=== PATIENT | female | born 1980 | race Caucasian/White ===

== ENCOUNTER → 2023-09-01 11:27 | Outpatient (CLI) | payer OTHER, SELFPAY ==
--- NOTE | 2023-09-01 11:30 | DI.MG.S_ITS ---
BILATERAL DIGITAL SCREENING MAMMOGRAM 3D/2D WITH CAD: 09/01/2023 CLINICAL: Baseline exam. Routine screening. Family history of breast cancer. No prior exams were available for comparison. Both breasts are heterogeneously dense, which may obscure small masses (category c / 51-75% glandular tissue). Current study was also evaluated with a Computer Aided Detection (CAD) system. No significant masses, calcifications, or other findings are seen in either breast. IMPRESSION: NEGATIVE There is no mammographic evidence of malignancy. A 1 year screening mammogram is recommended. Based on Tyrer-Cuzick model (a risk assessment model), the patient's lifetime risk is 20.0% and her 10 year risk is 3.1%. If a patient has an elevated risk, a more comprehensive evaluation should be considered and/or a referral to a genetic counselor. The [place] [employer], [employer], and NCCN Guidelines advise the consideration of Breast MRI as an adjunct to screening mammography in patients whose Lifetime risk to develop breast cancer is 20% or higher. This exam was interpreted at Station ID: [id number]. NOTE: For mammograms, a report in lay terms will be sent to the patient. Approximately 15% of breast malignancies will not be visualized mammographically. In the management of a palpable breast mass, a negative mammogram must not discourage biopsy of a clinically suspicious lesion. Electronically Signed By: Sofya santana/dima:09/01/2023 12:22:20 letter sent: Normal Exam ACR BI-RADS Category 1: Negative [id number]
== END ==
PROVIDERS: PCP Family Medicine; Referring Provider Family Medicine; Visit Provider Family Medicine
DX: Z12.31 Encounter for screening mammogram for malignant neoplasm of breast (principal); Z80.3 Family history of malignant neoplasm of breast; R92.30 Dense breasts, unspecified
CPT/HCPCS: 77063; 77067

== ENCOUNTER 2024-07-08 10:11 | Observation (INO) | payer OTHER, SELFPAY ==
[2024-07-08] VITALS (14 sets, daily range): BP systolic 138–189; BP diastolic 79–99; PULSE 68–120; RESP 13–69; TEMP 36.8–37; O2SAT 97–100; BMI 35.4; BMI 37.5
--- NOTE | 2024-07-08 10:35 | EKG_ITS ---
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
--- NOTE | 2024-07-08 10:41 | DI.RAD.S_ITS ---
PROCEDURE: XR CHEST 1V INDICATIONS: chest pain TECHNIQUE: One view of the chest was acquired. COMPARISON: None. FINDINGS: Surgical changes and devices: None. Lungs and pleura: Lungs are clear. No pleural effusions or pneumothorax. Mediastinum: Mediastinal contours appear normal. Heart size is normal. Bones and chest wall: No suspicious bony lesions. Overlying soft tissues appear unremarkable. IMPRESSION: No acute cardiopulmonary abnormality is seen. Dictated by: Donna Whitten M.D. on 07/08/2024 at 10:10 Approved by: Donna Whitten M.D. on 07/08/2024 at 10:11
[2024-07-08 11:01] LABS: Add Manual Diff / Slide Review NO; Basophils Absolute Auto 100 /uL (0-100); Basophils Percent Auto 1.4 % (0-2); Eosinophils Absolute Auto 400 /uL (0-450); Eosinophils Percent Auto 4.5 % (2-4); Hematocrit 43.4 % (36-46); Lymphocytes Absolute Auto 1600 /uL (1100-4500); Mean Corpuscular HGB Conc 34.6 % (30-36); Mean Corpuscular Hemoglobin 32.6 PG (26-34); Mean Corpuscular Volume 94.2 fL (80-100); Monocytes Absolute Auto 500 /uL (0-900); Monocytes Percent Auto 6.3 % (3-14); Neutrophils Absolute Auto 5900 /uL (1500-7000); Neutrophils Percent Auto 68.8 % (50-75); Platelet Count 310 X10^3/uL (150-400); Red Blood Cell Count 4.61 X10^6/uL (4.0-5.2); Red Cell Distribution Width 12.7 % (11.6-14.8); White Blood Cell Count 8.5 X10^3/uL (4.5-11.0)
[2024-07-08 11:08] LABS: Prothrombin Time 11.4 SECONDS (9.4-12.5)
[2024-07-08 11:11] LABS: Alanine Aminotransferase 24 IU/L (<35); Albumin 4.7 g/dL (3.5-5.0); Albumin Globulin Ratio 1.4 (1.0-2.8); Alkaline Phosphatase 101 U/L (38-126); Aspartate Aminotransferase 29 IU/L (14-36); BUN Creatinine Ratio 12.9 (6-22); Bilirubin Total 0.7 mg/dL (0.2-1.3); Blood Urea Nitrogen 11 mg/dL (7-17); Calcium 9.5 mg/dL (8.4-10.2); Carbon Dioxide 23 mmol/L (22-32); Chloride 106 mmol/L (98-107); Creatine Kinase 38 U/L (30-135); Estimated Glomerular Filt Rate > 60 mL/min (>60); Globulin 3.4 g/dL (1.7-4.1); Glucose 139 mg/dL (70-100); HEMOLYSIS < 15 (0-50); Lipase 64 U/L (23-300); Magnesium 1.9 mg/dL (1.6-2.3); PTT Partial Thromboplastin Tim 31 SECONDS (25.1-36.5); Potassium 3.7 mmol/L (3.4-5.1); Sodium 138 mmol/L (137-145); Total Protein 8.1 g/dL (6.3-8.2)
--- NOTE | 2024-07-08 11:15 | EKG_ITS ---
[address] [address] Test Date: 2024-07-08 Pat Name: Maura Costello Department: Room: 211 Gender: Female Client Partner: AFTAB : 1980 Requested By: Order Number: [id number] Reading MD: Measurements Intervals [place] Rate: 95 P: 15 RI: 116 QRS: 42 QRSD: 84 T: 44 QT: 362 QTc: 454 Interpretive Statements Normal sinus rhythm Nonspecific ST abnormality Electronically Signed On 07-09-2024 7:35:25 PST by Tirso Bloom
[2024-07-08 11:18] LABS: D Dimer 385 ng/ml (<500)
[2024-07-08 11:23] LABS: NT-proBNP (BNP-Adult 18+) 22 pg/mL (<125); Troponin I < 0.012 ng/mL (0.01-0.034)
--- NOTE | 2024-07-08 11:44 | ED_ITS ---
HPI - Arrhythmia/Palpitations General Chief Complaint: Arrhythmia/Palpitations Stated Complaint: 150/100 BP, heart is racing, poss SOB Time Seen by Provider: 07/08/24 10:58 Source: patient, RN notes reviewed and old records reviewed Mode of arrival: Family Vehicle Limitations: no limitations History of Present Illness HPI narrative: [age] old female history of hypertension, patient has Mirena IUD patient presents with complaint of feeling sort of off. She states she can not really explain it better than that but states she has been checking her blood pressure yesterday and today was elevated maximum was in the 180s systolic with the 90s diastolic and she noted her heart rate has felt fast last night and today. She states she wears an Apple watch it did not note that she has been tachycardic but was here although her what is not noted here in the department. Patient has not had any syncope. She states she had a little bit of heartburn last night but no chest pain. She states she feels like she was to take a deeper breath but denies any pleuritic chest pain. Otherwise does not really feel short of breath. She was little sweaty last night but denies any diaphoresis. No cold cough or congestive symptoms. No nausea or vomiting. No issues with bowel movements or urination. No new swelling of extremities. She does get regular menses sometimes will have cramping with bleeding but sometimes just cramping. Patient is on Diovan 80 mg in the morning she has been taking that for the past 3 years blood pressure has overall been appropriate although told by the dentist a couple weeks ago it was elevated. She has a Mirena IUD in place. Does note she was taking meloxicam stopped that 2 weeks ago because her blood pressure was high and was taking it for plantar fasciitis. Had her tonsils removed at age 23, had ovarian cyst excised at age 15 she has had C-sections x3. Describes allergy to penicillin with tongue swelling. No tobacco, intermittent wine patient states some nights she will have non some nights she will have 1 or 2. No recreational drugs. Family history dad had a pacemaker but no myocardial infarctions. Had a grandfather with SD. she does note she was told she had a murmur in the past and with her 1st had preeclampsia sounds like possibly cardiomyopathy and had diuresis with fluids and O2 but no BiPAP or intubation. Patient states she did not have preeclampsia with her 2 additional pregnancies. Tomi Moyer is her primary care provider. Related Data Home Medications Medication Instructions Recorded Confirmed loratadine 10 mg tablet 10 mg PO DAILY 07/08/24 07/08/24 valsartan 80 mg tablet 80 mg PO DAILY 07/08/24 07/08/24 Allergies Allergy/AdvReac Type Severity Reaction Status Date / Time Penicillins Allergy Swelling Verified 07/08/24 10:38 of Lip/Tongue/Throat Review of Systems Review of Systems ROS Unobtainable: All systems reviewed & are unremarkable except as noted in HPI and below Patient History Medical History Environmental allergies Hypertension Presence of Mirena IUD Surgical History (Updated 07/08/24 @ 15:42 by Gonzalez Bloom MD) History of tonsillectomy H/O ovarian cystectomy H/O: Family History (Updated 07/08/24 @ 15:43 by Gonzalez Bloom MD) Mother Hypertension Hyperlipidemia Father Prostate cancer Third degree AV block Ulcerative colitis Daughter Asthma Social History household members: spouse and children Smoking Status: Never smoker alcohol intake: current Smoking Status: Never smoker Exam Narrative Exam Narrative: GENERAL: Alert and oriented x three, well-appearing female in mild distress HEENT: Head normocephalic, atraumatic, EOMI, pupils reactive, face symmetric, moist mucous membranes NECK: Supple, full range of motion CARDIOVASCULAR: Slightly tachycardic but Regular rate and rhythm without murmurs, rubs or gallops. No JVD. No edema bilateral lower extremities. RESPIRATORY: Breath sounds equal bilaterally, no wheezes rales or rhonchi. No tachypnea or accessory muscle use appreciated. Normal speech. ABDOMEN: Soft, nontender. Normoactive bowel sounds all 4 quadrants. No guarding or rebound, rigidity, no mass : No CVA tenderness EXTREMITIES: Normal range of motion, no clubbing or edema. Neurovascularly intact NEUROLOGICAL: Cranial nerves II through XII grossly intact. Moving all extremities SKIN: Warm, dry, no petechiae, no rashes or lesions. Initial Vital Signs Initial Vital Signs: Vital Signs Temperature 98.2 F 07/08/24 10:31 Pulse Rate 120 H 07/08/24 10:31 Respiratory Rate 20 07/08/24 10:31 Blood Pressure 189/99 H 07/08/24 10:31 Pulse Oximetry 100 07/08/24 10:31 Oxygen Delivery Method Room Air 07/08/24 10:31 Course Orders Ordered: ED Orders 07/08/24 10:41 XR chest 1V Stat EKG-12 Lead Stat 07/08/24 10:52 Complete Blood Count AUTO DIFF Stat Comprehensive Metabolic Panel Stat D Dimer Stat Lipase Stat Magnesium Stat NT-proBNP (BNP-Adult 18+) Stat PTT Partial Thromboplastin Jeb Stat Prothrombin Time INR Stat TSH [Thyroid Stimulating Hormone] Stat Troponin & CK Cardiac Panel Stat 07/08/24 12:26 CT angio chest PE protocol Stat 07/08/24 12:59 Trop I [Troponin I] Stat 07/08/24 14:42 Education, smoking cessation ONGOING 07/08/24 18:00 Trop I [Troponin I] Stat 07/09/24 01:00 Troponin I Routine Influenza Virus Vaccine (Influenza Vaccine Qiv 0.5 Ml Syringe) 0.5 ml IM .ONCE ONE Stop: 07/09/24 09:01 Naloxone HCl (Naloxone 0.4 Mg/Ml Vial) 0.2 mg IV Q2MIN PRN PRN Reason: Opiate Reversal Ondansetron HCl (Ondansetron 4 Mg/2 Ml Inj) 4 mg IV NOW PRN PRN Reason: Nausea And Vomiting Ondansetron HCl (Ondansetron 4 Mg Odt) 4 mg SL NOW PRN PRN Reason: Nausea And Vomiting Discontinued Medications Aspirin (Aspirin 81 Mg Chew Tab) 324 mg PO NOW ONE Stop: 07/08/24 10:42 Last Admin: 07/08/24 12:27 Dose: Not Given Documented By: FRANSICO Sodium Chloride (Normal Saline 0.9%) 500 mls @ 1,000 mls/hr IV BOLUS ONE Stop: 07/08/24 12:55 Last Infusion: 07/08/24 13:09 Dose: Infused Documented By: Admin: 07/08/24 12:34 Dose: 1,000 mls/hr Documented By: FRANSICO Vital Signs Vital signs: Vital Signs - 8 hr 07/08/24 10:31 07/08/24 11:19 07/08/24 11:20 Temperature 98.2 F Pulse Rate 120 H 109 H 104 H Respiratory Rate 20 14 Blood Pressure 189/99 H Pulse Oximetry 100 100 Oxygen Delivery Method Room Air 07/08/24 11:20 07/08/24 11:30 07/08/24 11:30 Temperature Pulse Rate 112 H Respiratory Rate 17 Blood Pressure 175/88 H 163/81 H Pulse Oximetry 100 Oxygen Delivery Method 07/08/24 12:00 07/08/24 12:00 07/08/24 12:30 Temperature Pulse Rate 102 H 97 H Respiratory Rate 15 17 Blood Pressure 156/83 H Pulse Oximetry 100 100 Oxygen Delivery Method Room Air 07/08/24 12:30 07/08/24 13:00 07/08/24 13:00 Temperature Pulse Rate 96 H Respiratory Rate 22 Blood Pressure 168/83 H 184/93 H Pulse Oximetry 100 Oxygen Delivery Method 07/08/24 13:44 07/08/24 13:45 07/08/24 13:45 Temperature Pulse Rate 68 98 H Respiratory Rate 21 Blood Pressure 139/84 Pulse Oximetry 97 Oxygen Delivery Method 07/08/24 14:00 07/08/24 14:00 07/08/24 14:30 Temperature Pulse Rate 94 H 97 H Respiratory Rate 15 16 Blood Pressure 138/84 Pulse Oximetry 100 100 Oxygen Delivery Method 07/08/24 14:30 Temperature Pulse Rate Respiratory Rate Blood Pressure 151/79 H Pulse Oximetry Oxygen Delivery Method MDM - Arrhythmia/Palpitations Lab Data 07/08/24 10:52 07/08/24 10:52 Labs: Lab Results 07/08/24 07/08/24 Range/Units 10:52 12:59 WBC 8.5 (4.5-11.0) X10^3/uL RBC 4.61 (4.0-5.2) X10^6/uL Hgb 15.0 (12.0-16.0) g/dL Hct 43.4 (36-46) % MCV 94.2 (80-100) fL MCH 32.6 (26-34) PG MCHC 34.6 (30-36) % RDW 12.7 (11.6-14.8) % Plt Count 310 (150-400) X10^3/uL Neut % (Auto) 68.8 (50-75) % Lymph % (Auto) 19.0 L (25-40) % [place] % (Auto) 6.3 (3-14) % Eos % (Auto) 4.5 H (2-4) % Baso % (Auto) 1.4 (0-2) % Neut # (Auto) 5900 (0665-6777) /uL Lymph # (Auto) 1600 (4667-2631) /uL [place] # (Auto) 500 (0-900) /uL Eos # (Auto) 400 (0-450) /uL Baso # (Auto) 100 (0-100) /uL PT 11.4 (9.4-12.5) SECONDS INR 1.0 (0.9-1.3) APTT 31 (25.1-36.5) SECONDS D-Dimer 385 (<500) ng/ml Sodium 138 (137-145) mmol/L Potassium 3.7 (3.4-5.1) mmol/L Chloride 106 (98-107) mmol/L Carbon Dioxide 23 (22-32) mmol/L BUN 11 (7-17) mg/dL Creatinine 0.85 (0.52-1.04) mg/dL Estimated GFR > 60 (>60) mL/min BUN/Creatinine Ratio 12.9 (6-22) Glucose 139 H (70-100) mg/dL Hemoglobin A1c 4.8 (4.0-6.0) % Calcium 9.5 (8.4-10.2) mg/dL Magnesium 1.9 (1.6-2.3) mg/dL Total Bilirubin 0.7 (0.2-1.3) mg/dL AST 29 (14-36) IU/L ALT 24 (<35) IU/L Alkaline Phosphatase 101 (38-126) U/L Total Creatine Kinase 38 (30-135) U/L Troponin I < 0.012 < 0.012 (0.01-0.034) ng/mL NT-Pro-B Natriuret Pep 22 (<125) pg/mL Total Protein 8.1 (6.3-8.2) g/dL Albumin 4.7 (3.5-5.0) g/dL Globulin 3.4 (1.7-4.1) g/dL Albumin/Globulin Ratio 1.4 (1.0-2.8) Lipase 64 (23-300) U/L TSH 1.83 (0.47-4.68) uIU/mL Point of Care Testing Test Results Negative Urine Dip Bedside Urine Glucose Negative Bedside Urine Bilirubin - Negative Bedside Urine Ketone - Negative Urine Specific [place] 1.005 Bedside Urine Occult Blood - Negative Bedside Urine pH 6.0 Bedside Urine Protein - Negative Bedside Urine Urobilinogen - Negative Bedside Urine Nitrite - Negative Bedside Urine Leukocytes - Negative Esterase Imaging Data Chest x-ray: Radiologist's Impresson: Close Chest X-Ray (Signed) Donna Whitten - 07/08/24 Mammogram Screening (Signed) Sofya Ortiz - 09/01/23 Launch?Image [address] [address] XRay Report Signed Patient: Maura Costello MR#: [id number] : 1980 Acct:[id number] Age/Sex: 43 / F Date of Service: 07/08/24 Loc: ED Accession Number: [id number] Procedure: XR chest 1V Ordering Provider: Danielle Bloes D.O. PROCEDURE: XR CHEST 1V INDICATIONS: chest pain TECHNIQUE: One view of the chest was acquired. COMPARISON: None. FINDINGS: Surgical changes and devices: None. Lungs and pleura: Lungs are clear. No pleural effusions or pneumothorax. Mediastinum: Mediastinal contours appear normal. Heart size is normal. Bones and chest wall: No suspicious bony lesions. Overlying soft tissues appear unremarkable. IMPRESSION: No acute cardiopulmonary abnormality is seen. Dictated by: Donna Whitten M.D. on 07/08/2024 at 10:10 Approved by: Donna Whitten M.D. on 07/08/2024 at 10:11 CT scan - chest: Radiologist's Impresson: [address] [address] [address] Scan Report Signed Patient: Maura Costello MR#: [id number] : 1980 Acct:[id number] Age/Sex: 43 / F Date of Service: 07/08/24 Loc: ED Accession Number: [id number] Procedure: CT angio chest PE protocol Ordering Provider: Danielle Boles D.O. PROCEDURE: CT ANGIO CHEST PE PROTOCOL INDICATIONS: mild sob, tachycardia x 12 hours TECHNIQUE: After the administration of intravenous contrast, 2 mm thick sections acquired from the pulmonary apices to the posterior costophrenic angles. 3-dimensional maximum intensity projection (MIP) coronal and sagittal reformats were then acquired through the thorax. For radiation dose reduction, the following was used: automated exposure control, adjustment of mA and/or kV according to patient size. COMPARISON: None. FINDINGS: Image quality: Diagnostic. Pulmonary arteries: Pulmonary arteries are normal in size, and demonstrate no intraluminal filling defects to suggest central pulmonary embolism. Lower Neck: No enlarged lymph nodes. Thyroid: No thyroid nodules which require sonographic follow up, per consensus guidelines. Axillae: No enlarged lymph nodes. Chest Wall: Unremarkable. Bones: Unremarkable. Lungs and Pleura: No pneumothorax or pleural effusions. No consolidation or suspicious nodules. Heart: Heart size is normal. No pericardial effusion. Thoracic Vessels: No aortic aneurysm. Mediastinum and Huma: No enlarged lymph nodes. Esophagus: No wall thickening. No hiatal hernia. Upper Abdomen: Visualized upper abdomen solid organs and bowel loops appear normal. IMPRESSION: No pulmonary embolus. No acute cardiopulmonary process. Dictated by: Donna Whitten M.D. on 07/08/2024 at 12:42 Approved by: Donna Whitten M.D. on 07/08/2024 at 12:45 ECG Data Attestation: I personally reviewed and interpreted this ECG as follows: Interpretation: Sinus tachycardia rate of 111 [place] 122 QRS 86 QTC of 454, patient has ST depression V3 through feet 6 little bit 2 3 and AVF no clear elevation. Patient does not have priors for comparison EKG number is normal sinus rhythm, rate of 95 [place] 116 QRS 84 QTC of 454, no ST depression on repeat EKG. MDM Narrative Medical decision making narrative: 43-year-old female reports feeling sort of off does describe a little bit of chest discomfort last night none today. Patient was tachycardic on arrival as well as hypertensive. No hypoxia. No cold cough congestion symptoms recently. CBC shows normal white count hemoglobin and platelets predominance of eosinophils. Coags are negative D-dimer is 385 and negative. Patient's electrolytes are appropriate BUN 11 creatinine 0.85 glucose is 139 total CK and LFTs are negative troponins less than 0.012 with a BNP of 22 and a lipase is 64. Repeat troponin is less than 0.012 Chest x-ray is negative Point of care is negative, point of care urine is negative. Initial EKG did show some depression in lateral leads as well as 2 3 and AVF. Not appreciate did not repeat EKG. Patient did not have a prior for comparison. Repeat EKG does not show ST depression. 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 Discussed with patient we will obtain CT angio of the chest to rule out PE is negative for PE no acute cardiopulmonary process. Patient received fluids. Spoke with Dr. Garcia, cardiology. Can give low dose coreg. Reviewed findings from today. Discussed findings from today possibly pericarditis versus ACS versus other source of patient's symptomology. Recheck, patient states she was still feels little bit weird in her chest. She does not have pain she does not feel particularly short of breath. She is very mildly tachycardic still. Patient has had no recent upper respiratory infection but based on symptoms EKG changes although the rest of her workup is overall appropriate she is still slightly tachycardic and felt she would be appropriate to keep for observation for further workup. [id number] Bloom hospitalist, discussed keeping for chest pain obs, pericarditis vs myocarditis or other who accepts for observation. Did add on TSH. Discharge Plan Departure Patient Disposition: Admitted as Observation Clinical Impression: Tachycardia Admit Date/Time: 07/08/24 14:46 Admit Provider: Gonzalez Bloom
--- NOTE | 2024-07-08 12:26 | DI.CT.S_ITS ---
PROCEDURE: CT ANGIO CHEST PE PROTOCOL INDICATIONS: mild sob, tachycardia x 12 hours TECHNIQUE: After the administration of intravenous contrast, 2 mm thick sections acquired from the pulmonary apices to the posterior costophrenic angles. 3-dimensional maximum intensity projection (MIP) coronal and sagittal reformats were then acquired through the thorax. For radiation dose reduction, the following was used: automated exposure control, adjustment of mA and/or kV according to patient size. COMPARISON: None. FINDINGS: Image quality: Diagnostic. Pulmonary arteries: Pulmonary arteries are normal in size, and demonstrate no intraluminal filling defects to suggest central pulmonary embolism. Lower Neck: No enlarged lymph nodes. Thyroid: No thyroid nodules which require sonographic follow up, per consensus guidelines. Axillae: No enlarged lymph nodes. Chest Wall: Unremarkable. Bones: Unremarkable. Lungs and Pleura: No pneumothorax or pleural effusions. No consolidation or suspicious nodules. Heart: Heart size is normal. No pericardial effusion. Thoracic Vessels: No aortic aneurysm. Mediastinum and Huma: No enlarged lymph nodes. Esophagus: No wall thickening. No hiatal hernia. Upper Abdomen: Visualized upper abdomen solid organs and bowel loops appear normal. IMPRESSION: No pulmonary embolus. No acute cardiopulmonary process. Dictated by: Donna Whitten M.D. on 07/08/2024 at 12:42 Approved by: Donna Whitten M.D. on 07/08/2024 at 12:45
[2024-07-08] MEDS: SODIUM CHLORIDE 0.9% 500 ML 1000 ML IV (12:34)
[2024-07-08 13:45] LABS: Troponin I < 0.012 ng/mL (0.01-0.034)
--- NOTE | 2024-07-08 14:40 | P.HP_ITS ---
History of Present Illness History of Present Illness Date Patient Seen: 07/08/24 Time Patient Seen: 15:31 Chief complaint: 150/100 BP, heart is racing, poss SOB Narrative: This is a 43 year old female with HTN, Environmental Allergies and a Mirena IUD who is reporting a fast heart beat, raised blood pressures and heart burn for the last 18 hours. The HR in the ED has been in the 90s at rest and in the 120s with any movement. She says that her BP was up to 150/102 last night. She has a history of pre-eclampsia fluid overload with a several years ago. There is no FH of CAD. Her father had 3rd degree heart block. She is on Diovan for HTN and has had a Mirena IUD for 3 years. Her D-dimer and her CTA of the chest are normal. Her first EKG shows ischemic changes of 1-[address] depression in leads V3-V6. The second EKG is normal. She has no hyperthyroid symptoms, fevers, chills, UTI symptoms, recent URI symptoms or left sided chest pain/SOB. She is admitted for serial Troponins and EKG's. Myocarditis remains possible. Her case was discussed by the ED with Cardiology (Dr. Garcia) who apparently suggested outpatient followup. [facility] Medical History Environmental allergies Hypertension Presence of Mirena IUD Surgical History (Updated 07/08/24 @ 15:42 by Gonzalez Bloom MD) History of tonsillectomy H/O ovarian cystectomy H/O: Family History (Updated 07/08/24 @ 15:43 by Gonzalez Bloom MD) Mother Hypertension Hyperlipidemia Father Prostate cancer Third degree AV block Ulcerative colitis Daughter Asthma Social History Smoking Status: Never smoker Meds Home Medications and Allergies Allergies Allergy/AdvReac Type Severity Reaction Status Date / Time Penicillins Allergy Swelling Verified 07/08/24 10:38 of Lip/Tongue/Throat Review of Systems Review of Systems Narrative: Positive for palpitations and acid reflux chest pain. Negative for fevers, chills, sweats, abdominal pain, nausea, vomiting, headache, coughing, bleeding, dysuria, rashes, new allergies, sore throat Exam Vital Signs (past 8 hours): - 07/08/24 10:31 07/08/24 11:19 07/08/24 11:20 Temperature 98.2 F Pulse Rate 120 H 109 H 104 H Respiratory Rate 20 14 Blood Pressure 189/99 H Pulse Oximetry 100 100 Oxygen Delivery Method Room Air 07/08/24 11:20 07/08/24 11:30 07/08/24 11:30 Temperature Pulse Rate 112 H Respiratory Rate 17 Blood Pressure 175/88 H 163/81 H Pulse Oximetry 100 Oxygen Delivery Method 07/08/24 12:00 07/08/24 12:00 07/08/24 12:30 Temperature Pulse Rate 102 H 97 H Respiratory Rate 15 17 Blood Pressure 156/83 H Pulse Oximetry 100 100 Oxygen Delivery Method Room Air 07/08/24 12:30 07/08/24 13:00 07/08/24 13:00 Temperature Pulse Rate 96 H Respiratory Rate 22 Blood Pressure 168/83 H 184/93 H Pulse Oximetry 100 Oxygen Delivery Method 07/08/24 13:44 07/08/24 13:45 07/08/24 13:45 Temperature Pulse Rate 68 98 H Respiratory Rate 21 Blood Pressure 139/84 Pulse Oximetry 97 Oxygen Delivery Method 07/08/24 14:00 07/08/24 14:00 Temperature Pulse Rate 94 H Respiratory Rate 15 Blood Pressure 138/84 Pulse Oximetry 100 Oxygen Delivery Method Oxygen Delivery Method Room Air Narrative Exam Narrative: Alert and oriented x3. Mildly anxious about her abnormal EKG and palpitations. Pupils are equally round and reactive to light and accommodation. Extraocular muscles are intact. Sclerae are pink and nonicteric. Throat looks normal.. There is no lymphadenopathy head, neck, supraclavicular area. There is no thyromegaly. JVD is less than 6 cm. Heart is tachycardic with regular rhythm and no murmur. Lungs are clear to auscultation bilaterally. There is no chest wall tenderness. Abdomen is soft, bowel sounds positive, nontender, no organomegaly. Extremities have no ankle edema. Skin has no rash or jaundice. Neurological exam: Cranial nerves 2-12 test intact, there is no tremor, motor function is 5/5 throughout, she is fully oriented. Objective Labs 07/08/24 10:52 07/08/24 10:52 Labs: Laboratory Results - last 24 hr 07/08/24 07/08/24 10:52 12:59 WBC 8.5 RBC 4.61 Hgb 15.0 Hct 43.4 MCV 94.2 MCH 32.6 MCHC 34.6 RDW 12.7 Plt Count 310 Neut % (Auto) 68.8 Lymph % (Auto) 19.0 L [place] % (Auto) 6.3 Eos % (Auto) 4.5 H Baso % (Auto) 1.4 Neut # (Auto) 5900 Lymph # (Auto) 1600 [place] # (Auto) 500 Eos # (Auto) 400 Baso # (Auto) 100 PT 11.4 INR 1.0 APTT 31 D-Dimer 385 Sodium 138 Potassium 3.7 Chloride 106 Carbon Dioxide 23 BUN 11 Creatinine 0.85 Estimated GFR > 60 BUN/Creatinine Ratio 12.9 Glucose 139 H Calcium 9.5 Magnesium 1.9 Total Bilirubin 0.7 AST 29 ALT 24 Alkaline Phosphatase 101 Total Creatine Kinase 38 Troponin I < 0.012 < 0.012 NT-Pro-B Natriuret Pep 22 Total Protein 8.1 Albumin 4.7 Globulin 3.4 Albumin/Globulin Ratio 1.4 Lipase 64 Assessment & Plan Assessment & Plan narrative: This is a 43-year-old female with unexplained mild tachycardia, acid reflux symptoms and an initial EKG suggesting lateral ischemia. The follow-up EKG was normal and the troponin is normal as is the CTA of the chest. Abnormal heart rhythm and chest pain -symptoms occurring for 1 day -unexplained mild tachycardia -concerning initial EKG with flat ST depression of 1-2 mm in leads V3-V6. Second EKG normal. -serial troponins negative -CTA negative for PE. TSH normal. Lipase normal. White blood count normal. -concern for myocarditis/ischemia. ED physician did discuss with Cardiology. Hypertension -continue Diovan -consider adding beta-emil. Hyperglycemia Initial blood sugar 139, no history of diabetes, follow blood sugars while in the hospital. Check A1c. DVT prevention by ambulation. Backup decision maker is her . Time-Based Coding :: [TOTAL MINUTES] spent with patient and on the chart (including review of chart, obtaining history, exam, reviewing outside data, placing orders, documenting exam and treatment plan, and counseling patient) on [DATE].
[2024-07-08 15:28] LABS: Thyroid Stimulating Hormone 1.83 uIU/mL (0.47-4.68)
[2024-07-08 16:13] LABS: Hemoglobin A1C% w Est Avg Glu 4.8 % (4.0-6.0)
--- NOTE | 2024-07-08 17:53 | PC.NURSE ---
Pt arrived from ED at 1620, A&Ox4, VSS on RA. C/o SOB with exertion or when lying flat. C/o R arm feeling colder but CMS otherwise intact throughout. Lung sounds CTA, bowel sounds present. No c/o pain. Tele placed per order. Pt oriented to room and call light. Bed in low position, call light within reach.
[2024-07-08 21:42] LABS: Troponin I < 0.012 ng/mL (0.01-0.034)
[2024-07-08] MEDS: CALCIUM CARBONATE 500 MG TAB PO (21:48)
[2024-07-09] VITALS: BP 157/91; PULSE 94; RESP 20; TEMP 36.9; O2SAT 99
[2024-07-09 01:35] LABS: Troponin I < 0.012 ng/mL (0.01-0.034)
[2024-07-09 04:00] VITALS: BP 119/70; PULSE 74; RESP 20; TEMP 36.8; O2SAT 98
--- NOTE | 2024-07-09 07:29 | P.PN_ITS ---
Subjective Subjective Date Patient Seen: 07/09/24 Interval history: She is seen in her room here today. She says she has feeling a lot better. She has had no recurrence of chest pain and her exertional tachycardia has not returned. Her EKG continues to show slight ST depression in V3-V6 and also 1 and aVL. Her A1c is pending. She reports that her glucose last night was 95. Her troponins have been consistently less than 0.012. The TSH is 1.83. She will need an echocardiogram before discharging home. Exam Vital Signs (past 8 hours): - 07/09/24 00:00 07/09/24 04:00 Temperature 98.4 F 98.3 F Pulse Rate 94 H 74 Respiratory Rate 20 20 Blood Pressure 157/91 H 119/70 Pulse Oximetry 99 98 Oxygen Delivery Method Room Air Narrative Exam Narrative: Alert and oriented x3. No apparent distress. Heart is regular rate and rhythm without murmur Lungs are clear to auscultation bilaterally Extremities have no ankle edema Objective Labs 07/08/24 10:52 07/08/24 10:52 Labs: Laboratory Results - last 24 hr 07/08/24 07/08/24 07/08/24 10:52 12:59 21:10 WBC 8.5 RBC 4.61 Hgb 15.0 Hct 43.4 MCV 94.2 MCH 32.6 MCHC 34.6 RDW 12.7 Plt Count 310 Neut % (Auto) 68.8 Lymph % (Auto) 19.0 L [place] % (Auto) 6.3 Eos % (Auto) 4.5 H Baso % (Auto) 1.4 Neut # (Auto) 5900 Lymph # (Auto) 1600 [place] # (Auto) 500 Eos # (Auto) 400 Baso # (Auto) 100 PT 11.4 INR 1.0 APTT 31 D-Dimer 385 Sodium 138 Potassium 3.7 Chloride 106 Carbon Dioxide 23 BUN 11 Creatinine 0.85 Estimated GFR > 60 BUN/Creatinine Ratio 12.9 Glucose 139 H Hemoglobin A1c 4.8 Calcium 9.5 Magnesium 1.9 Total Bilirubin 0.7 AST 29 ALT 24 Alkaline Phosphatase 101 Total Creatine Kinase 38 Troponin I < 0.012 < 0.012 < 0.012 NT-Pro-B Natriuret Pep 22 Total Protein 8.1 Albumin 4.7 Globulin 3.4 Albumin/Globulin Ratio 1.4 Lipase 64 TSH 1.83 07/09/24 01:04 WBC RBC Hgb Hct MCV MCH MCHC RDW Plt Count Neut % (Auto) Lymph % (Auto) [place] % (Auto) Eos % (Auto) Baso % (Auto) Neut # (Auto) Lymph # (Auto) [place] # (Auto) Eos # (Auto) Baso # (Auto) PT INR APTT D-Dimer Sodium Potassium Chloride Carbon Dioxide BUN Creatinine Estimated GFR BUN/Creatinine Ratio Glucose Hemoglobin A1c Calcium Magnesium Total Bilirubin AST ALT Alkaline Phosphatase Total Creatine Kinase Troponin I < 0.012 NT-Pro-B Natriuret Pep Total Protein Albumin Globulin Albumin/Globulin Ratio Lipase TSH PFSH Medical History Environmental allergies Hypertension Presence of Mirena IUD Surgical History (Updated 07/08/24 @ 15:42 by Gonzalez Bloom MD) History of tonsillectomy H/O ovarian cystectomy H/O: Family History (Updated 07/08/24 @ 15:43 by Gonzalez Bloom MD) Mother Hypertension Hyperlipidemia Father Prostate cancer Third degree AV block Ulcerative colitis Daughter Asthma Social History household members: spouse and children Smoking Status: Never smoker alcohol intake: current Assessment & Plan Assessment & Plan narrative: This is a 43-year-old female with unexplained mild tachycardia, acid reflux symptoms and an initial EKG suggesting lateral ischemia. The follow-up EKG was normal and the troponin is normal as is the CTA of the chest. Abnormal heart rhythm and chest pain -symptoms occurring for 1 day -unexplained mild tachycardia with exertion -concerning initial EKG with flat ST depression of 1-2 mm in leads V3-V6. Second EKG normal. Third EKG on 07/09 shows mild but persisting ST segment depression in the lateral leads. -serial troponins negative x3 -CTA negative for PE. TSH normal. Lipase normal. White blood count normal. -concern for myocarditis/ischemia. ED physician did discuss with Cardiology. -plan discharge home today or tomorrow after echocardiogram. Hypertension -continue Diovan -consider adding beta-emil. Hyperglycemia Initial blood sugar 139, no history of diabetes, follow blood sugars while in the hospital. Check A1c. DVT prevention by ambulation. Backup decision maker is her . Time-Based Coding :: [TOTAL MINUTES] spent with patient and on the chart (including review of chart, obtaining history, exam, reviewing outside data, placing orders, documenting exam and treatment plan, and counseling patient) on [DATE]. Quality VTE Deep Vein Thrombosis/Pulmonary Embolism Present on Admission: No
[2024-07-09 07:50] VITALS: BP 127/80; PULSE 79; RESP 16; TEMP 36.7; O2SAT 97
[2024-07-09] MEDS: VALSARTAN 80 MG TABLET PO (08:50)
[2024-07-09] MEDS: LORATADINE 10 MG TABLET PO (08:50)
--- NOTE | 2024-07-09 09:33 | PC.NURSE ---
Patients blood pressure 150s/90s, she denies chest pain and her blood pressure medication was given. She ate well at breakfast and is resting.
--- NOTE | 2024-07-09 09:54 | EKG_ITS ---
[address] [address] Test Date: 2024-07-09 Pat Name: Maura Costello Department: [facility] Room: 211 Gender: Female Heel Seam Rubber: POOJA : 1980 Requested By: Order Number: [id number] Reading MD: Measurements Intervals [place] Rate: 98 P: 20 KS: 116 QRS: 30 QRSD: 88 T: 41 QT: 366 QTc: 467 Interpretive Statements Normal sinus rhythm Nonspecific ST abnormality Electronically Signed On 07-09-2024 16:38:20 PST by Tirso Bloom
--- NOTE | 2024-07-09 10:21 | DI.ECHO.S_ITS ---
[place] [facility]+ [facility] : : [address] : : [place] : : [id number] : : Phone: [phone] Echocardiogram Report + :Name: AJIT GRAJEDA Study Date: 07/09/2024 Height: 25 in : :[facility] ReadingLocation: Weight: 211 lb: : Gender: Female BSA: 1.0 m2 : :: 1980 Age: 43 yrs : :Reason For Study: HTN, tachycardia, dyspnea : :Ordering Physician: JOLIE, : :ROBERTA Rico Performed By: Can Dragger Donna Barnes : :Referring: ROBERTA DAVE : + Interpretation Summary 1. The left ventricular contractility is normal. Estimate ejection fraction is greater than 60% with no segmental wall motion abnormalities. No LVH. Normal diastolic function. 2. The right ventricle contractility is normal. 3. All cardiac chambers are of normal size. The intra-atrial septum appears to be lipomatous. 4. No significant valvular abnormalities. 5. No obvious intracardiac shunts. 6. No obvious intracardiac masses nor thrombi. 7. No hemodynamically significant pericardial effusion. 8. Low right-sided filling pressures. Conclusion: Normal biventricular function with no significant valvular abnormalities. Procedure: A two-dimensional transthoracic echocardiogram with color flow and Doppler was performed. The study quality was technically adequate. There is no prior echocardiogram noted for this patient. The patient was in sinus rhythm with heart rates between 96-115 bpm during the exam. Left Ventricle: The left ventricle appears normal in size, wall thickness, and systolic function without any focal wall motion abnormalities. The ejection fraction is estimated to be 60-65%. Diastolic parameters suggest probable normal left ventricular diastolic function and normal filling pressures. Right Ventricle: The right ventricle is normal in size and function. Atria: Both atria are normal in size. There is no Doppler evidence for an interatrial shunt. The thickening of interatrial septum suggests lipomatous hypertrophy. Mitral Valve: The mitral valve is normal in structure and function. There is trace mitral regurgitation. Aortic Valve: The aortic valve is trileaflet. The aortic valve opens well. No aortic regurgitation is present. Tricuspid Valve: The tricuspid valve is normal in structure and function. There is a trace or physiologic amount of tricuspid regurgitation. Pulmonary artery pressures cannot be estimated because of the lack of a measurable TR jet velocity but the IVC suggests a CVP of around 3 mmHg. Pulmonic Valve: The pulmonic valve is not well seen, but is grossly normal. There is a trace or physiologic amount of pulmonic regurgitation. Great Vessels: The aortic root is normal size. The ascending aorta is normal in size. The pulmonary artery is normal size. The IVC is of normal diameter and collapses greater than 50% with a sniff. This suggests a low right atrial pressure of 3 mm Hg. Pericardium/ Pleura There is no pericardial effusion. MMode/2D Measurements & Calculations LVIDd: 4.8 cm LVOT diam: 2.0 cm LVIDs: 2.7 cm Ao root diam: 3.2 cm FS: 43.9 % asc Aorta Diam: 3.6 cm IVSd: 0.70 cm Ao Arch Diam (Prox Trans): 2.6 cm LVPWd: 0.68 cm LV vogel. diameter/BSA (cm/m^2): 4.8 LV sys. diameter/BSA (cm/m^2): 2.7 LA A2 area: 12.9 cm2 RA long axis: 3.4 cm LA A4 area: 12.3 cm2 RA area: 7.7 cm2 LA length (vol): 4.2 cm RA vol: 14.5 ml LA vol: 32.4 ml RA : 14.4 ml/m2 LA vol index: 32.2 ml/m2 IVC diam: 1.4 cm TAPSE: 2.9 cm Doppler Measurements & Calculations Ao V2 max: 188.3 cm/sec LVOT Max Butch: 131.6 cm/sec Ao V2 mean: 115.9 cm/sec LV V1 max P.9 mmHg Ao max P.2 mmHg LV V1 VTI: 19.7 cm Ao mean P.3 mmHg MONTRELL(I,D): 2.1 cm2 Ao V2 VTI: 29.2 cm MONTRELL(V,D): 2.2 cm2 sev ratio: 0.67 MONTRELL indexed to BSA (cm^2/m^2): 2.1 MV E max butch: 88.4 cm/sec PA V2 max: 79.2 cm/sec MV A max butch: 91.3 cm/sec PA V2 mean: 49.5 cm/sec MV E/A: 0.97 PA mean P.2 mmHg Med Peak E' Butch: 9.6 cm/sec PA Accel Time: 0.06 sec E/E' med: 9.2 Lat Peak E' Butch: 14.3 cm/sec E/E' lat: 6.2 E/e' average: 7.7 MV P1/2t: 44.9 msec MV P1/2t max butch: 88.4 cm/sec SV(LVOT): 61.5 ml MVA(P1/2t): 4.9 cm2 Reading Physician:
[2024-07-09 12:00] VITALS: BP 146/96; PULSE 89; O2SAT 98
[2024-07-09 16:00] VITALS: BP 143/80; PULSE 103; RESP 16; O2SAT 99
--- NOTE | 2024-07-09 16:39 | PM.DS.1 ---
History of Present Illness History of Present Illness Date Patient Seen: 07/09/24 Chief complaint: 150/100 BP, heart is racing, poss SOB Narrative: This is a 43 year old female with HTN, Environmental Allergies and a Mirena IUD who is reporting a fast heart beat, raised blood pressures and heart burn for the last 18 hours. The HR in the ED has been in the 90s at rest and in the 120s with any movement. She says that her BP was up to 150/102 last night. She has a history of pre-eclampsia fluid overload with a several years ago. There is no FH of CAD. Her father had 3rd degree heart block. She is on Diovan for HTN and has had a Mirena IUD for 3 years. Her D-dimer and her CTA of the chest are normal. Her first EKG shows ischemic changes of 1-[address] depression in leads V3-V6. The second EKG is normal. She has no hyperthyroid symptoms, fevers, chills, UTI symptoms, recent URI symptoms or left sided chest pain/SOB. She is admitted for serial Troponins and EKG's. Myocarditis remains possible. Her case was discussed by the ED with Cardiology (Dr. Garcia) who apparently suggested outpatient followup. Discharge Providers Provider Date of admission: 07/08/24 14:46 Discharge Date: 07/09/24 Primary care physician: Isak Moyer MD Discharge provider: Gonzalez Bloom MD Summary Hospital Course Hospital Course: This is a 43-year-old female with unexplained mild tachycardia, acid reflux symptoms and an initial EKG suggesting lateral ischemia. The follow-up EKG was normal and the troponin is normal as is the CTA of the chest. Abnormal heart rhythm and chest pain -symptoms occurring for 1 day -unexplained mild tachycardia with exertion -concerning initial EKG with flat ST depression of 1-2 mm in leads V3-V6. Second EKG normal. Third EKG on 07/09 shows mild but persisting ST segment depression in the lateral leads. -serial troponins negative x3 -CTA negative for PE. TSH normal. Lipase normal. White blood count normal. -concern for myocarditis/ischemia. ED physician did discuss with Cardiology. -Discharged after normal echocardiogram report. -Follow up with PCP Hypertension -continue Diovan -consider adding beta-emil. Hyperglycemia Initial blood sugar 139, no history of diabetes, normal blood sugars while in the hospital. 4.8 A1c. Status at Discharge Cognitive/behavioral status at discharge: at baseline, oriented Exam Vital Signs (past 8 hours): - 07/09/24 12:00 07/09/24 16:00 Pulse Rate 89 103 H Respiratory Rate 16 Blood Pressure 146/96 H 143/80 H Pulse Oximetry 98 99 Oxygen Flow Rate 0 0 Oxygen Delivery Method Room Air Oxygen Flow Rate 0 Narrative Exam Narrative: See progress note exam today. Objective Labs 07/08/24 10:52 07/08/24 10:52 Labs: Laboratory Results - last 24 hr 07/08/24 07/09/24 21:10 01:04 Troponin I < 0.012 < 0.012 PFSH Medical History Environmental allergies Hypertension Presence of Mirena IUD Surgical History (Updated 07/08/24 @ 15:42 by Gonzalez Bloom MD) History of tonsillectomy H/O ovarian cystectomy H/O: Family History (Updated 07/08/24 @ 15:43 by Gonzalez Bloom MD) Mother Hypertension Hyperlipidemia Father Prostate cancer Third degree AV block Ulcerative colitis Daughter Asthma Social History household members: spouse and children Smoking Status: Never smoker alcohol intake: current Discharge Plan Discharge Plan Patient Disposition: Home Discharge orders & Medications Prescriptions: Continued valsartan 80 mg tablet 80 mg PO DAILY Patient Comments: loratadine 10 mg tablet 10 mg PO DAILY Follow up/Referrals: Carlton Garcia MD [Physician] - Isak Moyer MD [Primary Care Provider] - Visit Report/Discharge Packet Stand Alone Forms: Patient Portal/API, Stroke Signs & Symptoms, Patient Portal/API/Survey Discharge Data Primary Care Provider: Isak Moyer Attending Provider: Gonzalez Bloom Admit Date/Time: 07/08/24 14:46 Quality VTE Deep Vein Thrombosis/Pulmonary Embolism Present on Admission: No
== END 2024-07-09 17:58 | disposition home or self-care (01) ==
LOC: ED 14:45 → AC 14:46
PROVIDERS: Admitting Provider Family Medicine; Emergency Provider Emergency Medicine; PCP Family Medicine; Referring Provider Emergency Medicine; Visit Provider Family Medicine
DX: R00.0 Tachycardia, unspecified (principal); R73.9 Hyperglycemia, unspecified; K21.9 Gastro-esophageal reflux disease without esophagitis; I10 Essential (primary) hypertension
CPT/HCPCS: 36415; 71045; 71275; 80053; 81003; 81025; 82550; 82962; 83036; 83690; 83735; 83880; 84443; 84484; 85025; 85379; 85610; 85730; 93005; 93306; 96360; 99284; 99285; G0378; Q9967

== ENCOUNTER → 2024-09-05 11:58 | Outpatient (CLI) | payer OTHER, SELFPAY ==
[2024-07-08 16:20] VITALS: BMI 37.5
--- NOTE | 2024-09-05 11:58 | DI.MG.S_ITS ---
BILATERAL DIGITAL SCREENING MAMMOGRAM 3D/2D WITH CAD: 09/05/2024 CLINICAL: Routine screening. Family history of breast cancer. Comparison is made to exam dated: 09/01/2023 mammogram - [facility]. The breasts are heterogeneously dense, which may obscure small masses (category c / 51-75% glandular tissue). Current study was also evaluated with a Computer Aided Detection (CAD) system. There is an asymmetry in the right breast posterior depth superior region seen on the mediolateral oblique view only. No other significant masses, calcifications, or other findings are seen in either breast. IMPRESSION: INCOMPLETE: NEED ADDITIONAL IMAGING EVALUATION The asymmetry in the right breast is indeterminate. A diagnostic mammogram and ultrasound is recommended. Based on the Tyrer Cuzick model (a risk assessment model) the patient's lifetime risk is 19.9% and her 10 year risk is 3.3%. According to the ACR, ACS, and NCCN guidelines, an annual breast MRI exam along with mammogram is recommended if the patient's lifetime risk is 20% or greater. This exam was interpreted at Station ID: [id number]. NOTE: For mammograms, a report in lay terms will be sent to the patient. Approximately 15% of breast malignancies will not be visualized mammographically. In the management of a palpable breast mass, a negative mammogram must not discourage biopsy of a clinically suspicious lesion. Electronically Signed By: Pia Young M.D., Ph.D. eb/:09/07/2024 13:10:56 letter sent: Additional Imaging Needed ACR BI-RADS Category 0: Incomplete: Need Additional Imaging Evaluation
== END ==
PROVIDERS: PCP Family Medicine; Referring Provider Family Medicine; Visit Provider Family Medicine
DX: Z12.31 Encounter for screening mammogram for malignant neoplasm of breast (principal); Z80.3 Family history of malignant neoplasm of breast; R92.333 Mammographic heterogeneous density, bilateral breasts
CPT/HCPCS: 77063; 77067

== ENCOUNTER → 2024-10-09 13:18 | Outpatient (CLI) | payer OTHER, SELFPAY ==
[2024-07-08 16:20] VITALS: BMI 37.5
--- NOTE | 2024-10-09 13:20 | DI.US.S_ITS ---
US breast RT limited, MM diagnostic mammo unilat RT: 10/09/2024 BI-RADS: 1 CLINICAL: 43-year old female for right diagnostic mammogram and right diagnostic breast ultrasound that is a recall from screening, bilateral, digital, tomosynthesis, w/mammo cad on 09/05/2024. [facility] lifetime risk of 18.7%. No personal or first-degree family history of breast cancer. Current reported family history of breast cancer: maternal aunt. The patient reports testing negative for BRCA gene mutation. PRIOR EXAMS 09/05/2024, 09/01/2023. MAMMOGRAPHY TECHNIQUE: 2D and 3D (tomosynthesis) digital mammographic views obtained, with additional images as needed for full coverage. Current study was also evaluated with a Computer Aided Detection (CAD) system. ULTRASOUND TECHNIQUE Real-time piedra scale imaging of the area of clinical interest was performed with image documentation. TARGETED Right Breast Ultrasound: Real-time ultrasound exam was performed focused to area of clinical and/or imaging concern. DENSITY Right: C. The breasts are heterogeneously dense, which may obscure small masses. MAMMOGRAPHY FINDINGS Right (finding-1): MLO only, Upper, Middle depth: No suspicious mass, asymmetry, microcalcification, or other abnormality seen. The finding seen on recent screening mammogram did not persist with additional imaging and is consistent with superimposition of normal breast tissue. Right (finding-2): MLO only, Lower, Middle depth: No suspicious mass, asymmetry, microcalcification, or other abnormality seen. An asymmetry does not persist with additional views, compatible with benign overlapping fibroglandular tissue. ULTRASOUND FINDINGS Right (finding-1): Upper at 12:00, 8 cm from nipple: No suspicious sonographic finding present. Right (finding-2): Lower at 6:00, 7 cm from nipple: No suspicious sonographic finding present. IMPRESSION: Right * No evidence of malignancy. RECOMMENDATIONS Bilateral * Annual screening mammography in eleven months (August 2025). OVERALL ASSESSMENT CATEGORY BI-RADS-1: Negative. The [employer] [place] [employer] recommends annual screening mammography beginning at age 40 for women with average risk of breast cancer. ELECTRONICALLY SIGNED: Jennifer Heller M.D. on 10/09/2024 at 04:54:01 PM PT Interpreting Station ID: [id number]
== END ==
PROVIDERS: PCP Family Medicine; Referring Provider Family Medicine; Visit Provider Family Medicine
DX: R92.8 Other abnormal and inconclusive findings on diagnostic imaging of breast (principal); R92.331 Mammographic heterogeneous density, right breast; Z80.3 Family history of malignant neoplasm of breast
CPT/HCPCS: 76642; 77065; G0279